=== PATIENT | male | born 2000 | race Two or more races ===

== ENCOUNTER 2024-06-19 22:02 | Emergency (ER) | payer OTHER ==
[~2024-06-19] VITALS: Ht 177.8 cm; Wt 65.3 kg
[2024-06-19] MEDS ORDERED: PANTOPRAZOLE SO40 MG PO (22:23)
[2024-06-19] MEDS ORDERED: KETOROLAC TROMETHAMINE 30 MG VIAL IM STA (22:47)
[2024-06-19] MEDS ORDERED: PANTOPRAZOLE SODIUM 40 MG TABLET.DR PO STA (22:47)
[2024-06-19 23:29] LABS: HEMATOCRIT 46.6 % (39.0-48.0); MEAN CELL VOLUME 86.5 fL (80.0-100.00); MEAN CORPUSCULAR HEMOGLOBIN 29.7 pg (27.00-32.0); MEAN CORPUSCULAR HGB CONC 34.4 g/dl (32.0-36.0); PLATELET COUNT 301 K/uL (150-450); RED BLOOD COUNT 5.39 M/uL (4.00-6.00); RED CELL DISTRIBUTION WIDTH 13.3 % (11.5-14.5)
[2024-06-19 23:56] LABS: CALCIUM 10.1 mg/dL (8.5-10.1); CREATININE SERUM 1.16 mg/dL (0.70-1.30); GFR 76.71; POTASSIUM 3.64 mEq/L (3.5-5.1)
[2024-06-20 00:06] LABS: URINE APPEARANCE Clear; URINE BILIRRUBIN Negative (NEGATIVE); URINE BLOOD Negative; URINE COLOR Yellow; URINE GLUCOSE Negative (NEGATIVE); URINE LEUKOCYTE Negative; URINE NITRATE Negative; URINE PROTEIN Negative (NEGATIVE); URINE UROBILINOGEN 0.2 E.U./dl
[2024-06-20 00:09] LABS: URINE BACTERIA 2.5 uL (0.0-1933); URINE EPITHELIAL CELLS 0.4 uL (0.0-38.8); URINE KETONE 40 (NEGATIVE); URINE RBC 0.9 uL (0.0-20.8); URINE WBC 1.5 uL (0.0-23.2)
[2024-06-20] MEDS ORDERED: LEVSIN/SL0.125 MG SL (04:09)
== END 2024-06-20 04:22 ==
LOC: ER 22:02
PROVIDERS: General Practice
DX: R10.84 Generalized abdominal pain (principal); Z91.013 Allergy to seafood